=== PATIENT | male | born 1965 | race Caucasian/White ===

== ENCOUNTER → 2020-12-25 15:31 | Outpatient (POV) | payer SELFPAY | PROVIDERS: Visit Provider Dermatology | DX: Z00.00 Encounter for general adult medical examination without abnormal findings (principal) ==

== ENCOUNTER → 2021-01-29 10:11 | Outpatient (POV) | payer SELFPAY | PROVIDERS: Visit Provider Dermatology | DX: Z00.00 Encounter for general adult medical examination without abnormal findings (principal) ==

== ENCOUNTER → 2021-07-30 16:17 | Outpatient (POV) | payer SELFPAY | PROVIDERS: Visit Provider Dermatology | DX: Z00.00 Encounter for general adult medical examination without abnormal findings (principal) ==

== ENCOUNTER 2024-06-18 14:06 | Emergency (ER) | payer BC, SELFPAY ==
--- NOTE | 2024-06-18 14:10 | ED_ITS ---
Discharge Plan Disposition Patient Disposition: Home, Self-Care Condition: Good Prescriptions Prescriptions: New ofloxacin 0.3 % drops See Rx Instructions .ROUTE .COMPLEX Qty: 10 0RF Rx Instructions: put 1-2 drps into affected eye(s) every 2-4 h x 2 days, then 1-2 drps 4 times/day days 3-7 Referrals Follow up/Referrals: Provider,Referral, MD [Primary Care Provider] - See instructions Clinical Impressions Clinical Impression: Corneal abrasion, left Instructions Patient Instructions: DI for Corneal Abrasion Print Language Print Language: Sami Discharge ED Provider: Marisol Martinez [facility] [place] [facility] [place] General Stated complaint: AO 06/18/24 1130 left eye injury Time Seen by Provider: 06/18/24 14:31 History of Present Illness Provider Complaint: Foreign body left eye while weedeating a few hours ago. Irrigated extensively but still feels something in his eye when he blinks. Painless when he keeps his eye closed. Onset (ago): hour(s) (3) Location: eyes Relieving factors: none Exacerbating factors: none Associated symptoms: denies other symptoms Treatments prior to arrival: other (irrigation) Related Data Previous Rx's ?Medication ?Instructions ?Recorded ofloxacin 0.3 % eye drops See Rx Instructions ophthalmic 06/18/24 (eye) .COMPLEX #10 mL Allergies Allergy/AdvReac Type Severity Reaction Status Date / Time No Known Allergies Allergy Verified 06/18/24 14:25 [facility] Disclaimer: The information contained in this section may have been updated after the patient was seen, as this information can be updated by other users. Medical History (Updated 06/18/24 @ 14:42 by MANDO Cisneros) No significant past medical history Social History Smoking Status: Never smoker alcohol intake: never current occupational status: employed Travel in the last 8 weeks: None ROS Obtained: Yes All systems reviewed & no additional complaints except as documented Eyes Eyes: Reports eye pain Physical Exam General General appearance: alert and in no apparent distress Head Head exam: atraumatic, normocephalic and normal inspection Eye Eye exam: Present normal appearance, PERRL and EOMI Expanded Eye Exam Slit lamp exam: performed Sclera/Conjunctival: left: injection Both Eyes Image: 2 1. corneal abrasion Respiratory Respiratory exam: Present normal lung sounds bilaterally; Absent respiratory distress Cardiovascular Cardiovascular exam: Present regular rate and normal rhythm; Absent JVD Extremities Exam Extremities exam: Present normal inspection, full ROM and normal capillary refill; Absent calf tenderness Neurological Exam Neurological exam: Present alert and oriented X3 Psychiatric Psychiatric exam: Present normal affect and normal mood Skin Skin exam: Present warm, dry, intact and normal color Lymphatic Lymphatic Findings: no adenopathy Medical Decision Making Robin Inquiry Pt receiving controlled substance: No Procedures Eye Exam/FB Removal Location: eye (L) Topical anesthetic used: tetracaine Fluorescein Stick(s) used: Yes Procedure performed under: direct visualization with magnification Evidence of corneal penetration: No Post-procedure medication: ophthalmic antibiotic Patient tolerated procedure: no complications
[2024-06-18 14:15] VITALS: BP 144/83; PULSE 90; RESP 20; TEMP 36.8; O2SAT 95; BMI 25.7
[2024-06-18] MEDS: TETRACAINE 0.5% OPTH SOL 15ML OP (14:43)
[2024-06-18] MEDS: ERYTHROMYCIN BASE 1 GM OINT...G. OP (14:44)
[2024-06-18] MEDS: FLUORESCEIN SODIUM 1MG STRIP 1 MG OP (14:44)
[2024-06-18 14:45] VITALS: BP 144/83; PULSE 90; RESP 20; TEMP 36.8; O2SAT 95
== END 2024-06-18 14:47 | disposition home or self-care (01) ==
PROVIDERS: Emergency Provider Physician Assistant
DX: S05.02XA Injury of conjunctiva and corneal abrasion without foreign body, left eye, initial encounter (principal); W44.9XXA Unspecified foreign body entering into or through a natural orifice, initial encounter
CPT/HCPCS: 99204; 99212; G0463

== ENCOUNTER 2024-08-02 11:01 | Outpatient (POV) | payer BC, SELFPAY | END 2024-08-02 23:59 | disposition home or self-care (01) | LOC: SC 11:02 | PROVIDERS: Visit Provider Dermatology | DX: Z00.00 Encounter for general adult medical examination without abnormal findings (principal) ==

== ENCOUNTER 2024-09-27 08:40 | Outpatient (POV) | payer BC, SELFPAY | END 2024-09-27 23:59 | disposition home or self-care (01) | LOC: SC 09-28 07:37 | PROVIDERS: Visit Provider Dermatology | DX: Z00.00 Encounter for general adult medical examination without abnormal findings (principal) ==